=== PATIENT | female | born 1975 | race American Indian/Alaskan Native ===

== ENCOUNTER 2021-05-08 07:57 | Day surgery (SDC) | payer BC ==
[~2021-05-08 07:57] MED LIST: MIDAZOLAM 2 MG/2 ML INJ IV NR; SODIUM CHLORIDE 0.9% 1000 ML 1,000 ML IV SCH; ceFAZolin/STERILE WATER 2 GM/20 ML SYRINGE IV NR
--- NOTE | 2021-05-08 09:23 | Anesthesia Consultation ---
Anesthesia Consult and Med Hx Date of service: 05/08/21 - Airway Anesthetic Teeth Evaluation: Good ROM Head & Neck: Adequate Mental/Hyoid Distance: Adequate Mallampati Class: Class II Intubation Access Assessment: Probably Good - Pre-Operative Health Status ASA Pre-Surgery Classification: ASA3 Proposed Anesthetic Plan: General - Pre-Anesthesia Comment Pre-Anesthesia Comments: discussed GA vs regional; patient requests GA - Pulmonary Hx Smoking: No Hx Respiratory Symptoms: No - Cardiovascular System Hx Hypertension: Yes (no meds for several months, BP controlled in preop) Hx Heart Attack/AMI: No Hx Percutaneous Transluminal Coronary Angioplasty (PTCA): No - Central Nervous System CVA: No - Endocrine Hx End Stage Renal Disease: Yes (laast HD 05/07/21) Hx Liver Disease: No Hx Insulin Dependent Diabetes: No Hx Non-Insulin Dependent Diabetes: No Hx Hyperthyroidism: Yes (controlled w/ methimazole) - Other Systems Hx Cancer: Yes (hx renal ca s/p nephrectomy) Hx Obesity: No - Additional Comments Anesthesia Medical History Comments: No hx anesthetic complications.
--- NOTE | 2021-05-08 09:24 | Anesthesia Day of Surgery ---
Anesthesia Day of Surgery - Day of Surgery Patient Examined: Yes Patient H&P Reviewed: Yes Patient is NPO: Yes
[2021-05-08] MEDS ORDERED: propofoL 200 MG/20 ML VIAL IV ONE (09:47)
[2021-05-08 09:59] LABS: Hematocrit 37.8 % (30.3-42.9); Hemoglobin 12.4 gm/dl (10.1-14.3); Mean Corpuscular HGB Conc 33 % (30-34); Mean Corpuscular Volume 103 fl (79-97); Platelet Count 274 K/mm3 (140-440); Red Blood Count 3.68 M/mm3 (3.65-5.03)
[2021-05-08 10:00] LABS: Red Cell Distribution Width 20.9 % (13.2-15.2)
[2021-05-08] MEDS ORDERED: fentaNYL 100 MCG/2 ML INJ IV PRN (10:00)
[2021-05-08] MEDS ORDERED: ONDANSETRON 4 MG/2 ML INJ IV PRN (10:00)
[2021-05-08 10:12] LABS: Calcium 9.3 mg/dL (8.4-10.2)
[2021-05-08] MEDS ORDERED: HEPARIN 10,000 UNITS/10 ML VIAL ONE (10:37)
[2021-05-08] MEDS ORDERED: fentaNYL 100 MCG/2 ML INJ ONE (10:37)
[2021-05-08] MEDS ORDERED: BUPIVACAINE/PF (0.5%) 5 MG/1 ML 30 ML VIAL INFILTRATI ONE ×2 (10:37→11:59)
[2021-05-08] MEDS ORDERED: LIDOCAINE 1%/EPINEPHRINE 1:100,000 VIAL (20 ML) INFILTRATI ONE (10:37)
[2021-05-08] MEDS ORDERED: SODIUM CHLORIDE 0.9% 500 ML 500 ML ONE (10:37)
[2021-05-08] MEDS ORDERED: ONDANSETRON 4 MG/2 ML INJ ONE (11:00)
[2021-05-08] MEDS ORDERED: LIDOCAINE MPF (2%) 20 MG/1 ML VIAL 5 ML ONE (11:00)
[2021-05-08] MEDS ORDERED: dexAMETHasone 20 MG/5 ML VIAL ONE (11:00)
[2021-05-08] MEDS ORDERED: ePHEDrine SULFATE 50 MG/1 ML INJ ONE (11:10)
[2021-05-08] MEDS ORDERED: HEPARIN 2,000 UNIT in SODIUM CHLORIDE 0.9% 500 ML 500 ML IR ONE (11:59)
[2021-05-08] MEDS ORDERED: SODIUM CHLORIDE 0.9% IRR 1,000 ML BOTTLE IR ONE (11:59)
--- NOTE | 2021-05-08 12:12 | Short Stay Summary ---
Short Stay Documentation Date of service: 05/08/21 Narrative H&P: See H&P - History H&P: obtained from office - Allergies and Medications Current Medications: Allergies latex Allergy (Verified 04/24/21 10:25) Swelling Home Medications Medication Instructions Recorded Confirmed Last Taken Type Cinacalcet HCl [Sensipar] 90 mg PO DAILY 04/24/21 05/08/21 05/07/21 18:00 History Methimazole [Tapazole] 40 mg PO DAILY 04/24/21 05/08/21 05/07/21 09:00 History Sevelamer Carbonate [Renvela] 800 mg PO TIDWM 04/24/21 05/08/21 05/07/21 18:00 History amLODIPine [Norvasc] 20 mg PO DAILY 04/24/21 04/24/21 Unknown History propranoloL [Inderal] 20 mg PO BID 04/24/21 05/08/21 05/01/21 09:00 History Active Medications Cefazolin Sodium (Cefazolin/Sterile Water 2 Gm/20 Ml Syringe) 2 gm IV PREOP NR Stop: 05/08/21 23:59 Fentanyl (Fentanyl 100 Mcg/2 Ml Inj) 50 mcg IV Q5MIN PRN PRN Reason: Pain , Severe (7-10) Stop: 05/08/21 17:00 Sodium Chloride (Nacl 0.9% 1000 Ml) 1,000 mls @ 42 mls/hr IV DIRECT TANIKA Stop: 05/08/21 23:59 Last Admin: 05/08/21 09:30 Dose: 42 mls/hr Documented by: Midazolam HCl (Midazolam 2 Mg/2 Ml Inj) 2 mg IV PREOP NR Stop: 05/08/21 21:00 Last Admin: 05/08/21 09:45 Dose: 2 mg Documented by: Ondansetron HCl (Ondansetron 4 Mg/2 Ml Inj) 4 mg IV ONCE PRN PRN Reason: Nausea And Vomiting Stop: 05/08/21 17:00 - Brief post op/procedure progress note Date of procedure: 05/08/21 Pre-op diagnosis: End-Stage Renal Disease Post-op diagnosis: same Procedure: Creation of Left Brachiocephalic Arteriovenous Fistula Anesthesia: MAC, regional Surgeon: IKE SERRATO Estimated blood loss: minimal Pathology: none Condition: stable - Disposition Condition at discharge: Good Disposition: 01 HOME / SELF CARE / HOMELESS Short Stay Discharge Plan Activity: other (No heavy lifting with left arm for 2 weeks. You stress ball with left hand as often as possible.) Wound: open to air, keep clean and dry, other (Okay to wash the left arm wound with soap and water but do not soak in water for 2 weeks.) Follow up with: IKE SERRATO MD [Staff Physician] - 14 Days Prescriptions: HYDROcodone/APAP 5-325 [[place] 5/325] 1 each PO Q4HR PRN #30 tablet PRN Reason: Pain
--- NOTE | 2021-05-08 12:14 | Operative Report ---
Operative Report Operative Report: Date of procedure: 05/08/2021 Pre-operative diagnosis: End-Stage Renal Disease Post-operative diagnosis: End-Stage Renal Disease Procedure(s): Creation of Left brachial Artery to Cephalic Vein Arteriovenous Fistula Surgeon: Martin Simon MD Freelance Interpreter/Translator: None Anesthesia: Regional/MAC EBL: Minimal Counts: Correct Complications: None Condition: Stable Findings: Successful creation of left brachiocephalic arteriovenous fistula with palpable thrill and palpable radial pulse at the completion of the case. Specimen: None Indications: The patient is a 45-year-old female with a history of end-stage renal disease who is currently on hemodialysis through a right internal jugular permacath. She is in need of long-term dialysis access and is right-hand dominant. Her work-up demonstrated that she is an adequate candidate for creation of a left brachiocephalic arteriovenous fistula. She was given the risk, benefits, and alternative procedures and consented to the procedure. Description of Procedure: The patient had a regional block of the patient's left arm was performed in the preoperative area prior to being transported to the operating room. Once the regional block was performed the patient was transported to the operating room and adequate sedation was given. When the patient was sedated a timeout was performed and the patient's left arm was then prepped and draped in normal sterile fashion. A transverse incision was then made and carried down to the cephalic vein using sharp dissection. The vein was dissected out both proximally and distally and suture ligated and divided distally. I flushed the vein with heparinized saline and flow was controlled with a bulldog clamp. I then dissected out the brachial artery through this incision circumferentially both proximal and distal and controlled the artery with vessel loops. I systemically heparinized the patient with 3000 units of heparin IV and used angled DeBakey clamps to control flow through the artery. I created an arteriotomy using an 11 blade and Diehl scissors. I created an end to side anastomosis between the cephalic vein and brachial artery using a 6-0 Prolene in running fashion. Prior to completing the anastomosis I flashed the artery both proximally and distally and then flushed the anastomosis with heparinized saline to remove any debris. I then completed the anastomosis and removed all clamps allowing flow into the fistula which had an adequate thrill. I achieved hemostasis with a combination of Quick Clot and electrocautery. Once hemostasis had been achieved I closed the wound in 2 layers using a 3-0 Vicryl in a running fashion in the deep dermal layer and a 4-0 Monocryl in running fashion in the subcuticular layer. I then dressed the wound with Dermabond. The patient tolerated the procedure well. All sponge, needle, and instrument counts were correct. The patient was taken to the recovery area in stable condition.
[2021-05-08] MEDS ORDERED: HYDROcodone/ACETAMINOPHEN 5-325 MG TAB PO ONE (12:55)
[2021-05-08 16:05] VITALS: BP 125/76
--- NOTE | 2021-05-08 16:05 | Post Anesthesia Evaluation ---
- Post Anesthesia Evaluation Patient Participated: Yes Airway Patent: Yes Stable Respiratory Function: Yes Nausea/Vomiting: No Temp > 96.8F: Yes Pain Manageable: Yes Adequeate Hydration: Yes Anesthesia Complications: No
== END 2021-05-08 13:45 | disposition home or self-care (01) ==
LOC: OR 07:57
PROVIDERS: ATTEND Surgery Vascular Surgery
DX: I12.0 Hypertensive chronic kidney disease with stage 5 chronic kidney disease or end stage renal disease (principal); N18.6 End stage renal disease; Z79.899 Other long term (current) drug therapy; Z98.890 Other specified postprocedural states; Z91.040 Latex allergy status; Z68.25 Body mass index [BMI] 25.0-25.9, adult
CPT/HCPCS: 36415; 36821; 80048; 81025; 85027; J0690; J1100; J1644; J2250; J2405; J2704; J3010; J7030; J7040